=== PATIENT | male | born 1945 | race Caucasian/White ===

== ENCOUNTER 2022-12-10 13:32 | Outpatient (CLI) | payer BC, SELFPAY | END 2022-12-10 13:33 | disposition home or self-care (01) | PROVIDERS: PCP Family Medicine; Visit Provider Nurse Practitioner | DX: C61 Malignant neoplasm of prostate (principal) | CPT/HCPCS: 72195 ==

== ENCOUNTER 2023-09-22 06:08 | Day surgery (SDC) | payer BC, SELFPAY ==
[2023-09-22] VITALS (7 sets, daily range): BP systolic 118–142; BP diastolic 62–73; PULSE 80–89; RESP 14–20; TEMP 36.2–36.7; O2SAT 95–96; BMI 27.1
--- NOTE | 2023-09-22 06:35 | SUR.PREOP ---
SAME DAY SURGERY LOCAL INJECTION SITE VERIFICATION WAS PERFORMED BY SURGEON/PA AND PATIENT PRIOR TO LOCAL ANESTHETIC BEING INJECTED TO OPERATIVE SITE.
[2023-09-22] MEDS: BUPIVACAINE 0.5 %/EPI 1:200K INJECTION (07:10)
--- NOTE | 2023-09-22 07:32 | PM.ORPRC ---
Procedure Note Date of procedure: 09/22/23 Procedure: Preop diagnosis: Right thumb stenosing tenosynovitis Postop diagnosis: Right thumb stenosing tenosynovitis Procedure: Right thumb A1 braxton release Anesthesia: Local Surgeon: Andre Honeycutt MD reference library assistant: Susahnt Centeno PA-C EBL: 1 mL Complications: None Specimens: None Drains: None Preoperative antibiotics: None Indications: The patient has a history of right thumb painful catching and locking. Despite appropriate non operative management including flexor tendon sheath corticosteroid injections they continue to have symptoms. Operative intervention was recommended. The risks, benefits alternatives and expected outcomes were discussed in detail. These included but were not limited to: Infection, bleeding, injury to blood vessel or nerve, venous thromboembolism. All questions were answered to their satisfaction. The patient was placed supine on the operating room table. Local anesthesia was established with 0.5% Marcaine with epinephrine and 2% lidocaine with epinephrine. The hand was prepped and draped in usual sterile fashion. A transverse incision was made in the MP flexion crease of the thumb. Subcutaneous dissection was taken through the palmar fascia to the flexor tendons with the tenotomy scissors. The A1 braxton was released with the 15 blade and the tenotomy scissors. The edges of the A1 braxton were sharply resected. Active flexion and extension of the thumb shows no catching or locking, no bowstringing of the flexor tendons. The wound was closed with interrupted nylon sutures. A dry dressing was applied the tourniquet was released. Sponge and needle counts were correct x 2. The patient tolerated the procedure well, there were no apparent complications. They were sent to same day surgery in satisfactory condition. Plan: Use of the hand as tolerates. Discontinue the intraoperative dressing on postoperative day 3 and may get the wound wet as tolerates. Follow up in the office in 2 weeks for a wound check and suture removal.
== END 2023-09-22 08:15 | disposition home or self-care (01) ==
LOC: OR 06:09
PROVIDERS: PCP Family Medicine; Visit Provider Orthopaedic Surgery
PROC: (CPT 26055; principal; 2023-09-22 07:15)
DX: M65.311 Trigger thumb, right thumb (principal); M65.841 Other synovitis and tenosynovitis, right hand
CPT/HCPCS: 26055; J3490